=== PATIENT | female | born 1995 | race African-American/Black ===

== ENCOUNTER 2022-06-20 09:52 | Emergency (ER) | payer OTHER ==
[~2022-06-20] VITALS: Ht 167.6 cm; Wt 80.0 kg
[2022-06-20 10:00] VITALS: BP 142/89
[2022-06-20] MEDS ORDERED: LORAZEPAM 0.5MG TABLET PO ONE (12:00)
[2022-06-20] MEDS ORDERED: HYDR-459 MT (12:45)
== END 2022-06-20 14:09 | disposition home or self-care (01) ==
LOC: ER 09:52
DX: F41.9 Anxiety disorder, unspecified (principal); R07.89 Other chest pain; F32.A Depression, unspecified; Z88.0 Allergy status to penicillin
CPT/HCPCS: 71045; 81025; 93005; 99283